=== PATIENT | female | born 1955 | race Two or more races ===

== ENCOUNTER 2022-05-16 15:28 | Emergency (ER) | payer OTHER, BC ==
[~2022-05-16] VITALS: Ht 127 cm; Wt 66.7 kg
[2022-05-16] MEDS ORDERED: CHILDREN'S ASPI81 MG (15:34)
[2022-05-16] MEDS ORDERED: AMLODIPINE-OLM1 EAC2 (15:34)
== END 2022-05-17 | disposition left against medical advice (07) ==
LOC: ER 15:28
DX: Z53.21 Procedure and treatment not carried out due to patient leaving prior to being seen by health care provider (principal)